=== PATIENT | female | born 1990 | race Caucasian/White ===

== ENCOUNTER 2017-01-03 00:04 | Inpatient (IN) | payer BC ==
[~2017-01-03] VITALS: Ht 167.6 cm; Wt 122.0 kg
--- NOTE | 2017-01-03 19:20 | NUR ---
01/03/171919 Jacinda Olvera 1908 - PT ARRIVED TO PACU AWAKE AND MAINTAINING AIRWAY. O2 SAT ABOVE 98% ON ROOM AIR. PT DENIES PAIN AND NAUSEA. AT BEDSIDE
[2017-01-04] MEDS ORDERED: HYDROCHLOROTHIA25 MG PO (02:51)
[2017-01-04] MEDS ORDERED: TYLENOL EXTRA500 MG PO (02:52)
--- NOTE | 2017-01-04 09:58 | PR ---
[facility] [address] [facility] [place], [place] [address] Signed PP Progress Notes Datetime Report Generated by NILSA: 01/04/2017 09:58 SUBJECTIVE: [id number] Pain: Within normal limits Nausea/Vomiting: Denies Flatus: No Vital Signs: [id number] Vital Signs: Reviewed; Within Normal Limits EXAM: [id number] Cardiovascular: Normal Respiratory: Normal Abdomen/Uterus: Abnormal Lochia: Normal Vulva/Perineum: Not Done Breasts: Not Done CVA Tenderness: Not Done Extremities: Abnormal Incision: Normal Progress: Abnormal Exam Comments: Abdomen with active BS. Fundus firm, NT @ U-1. Ext 2+ edema H/H 10.5/30.1, WBC 10.6, plat 94k IMPRESSION/PLAN/PROCEDURES: [id number] Impression: Normal progression; difficulties Plan: consult Other Plans: increase ambulation Progress Notes: Doing well overall. Platelets are lower but not dangerously so. Signing Physician: Dali Zavaleta MD CC: *Electronically Signed* 01/04/17 0958 DALI ZAVALETA MD PATIENT NAME: IGNACIAJUDY PROGRESS NOTE DATE OF : 89 PHYSICIAN: DALI ZAVALETA MD RPT #: [id number] REPORT IS CONFIDENTIAL AND NOT TO BE RELEASED WITHOUT AUTHORIZATION
--- NOTE | 2017-01-06 00:59 | EKG ---
[facility] [address] [facility] [place], [place] [address] Signed Normal sinus rhythm Normal ECG No previous ECGs available Confirmed by LAURA MONTES MD ([id number]) on 01/06/2017 12:59:16 AM Electronically Signed By: LAURA MONTES MD 01/06/17 0059 PATIENT NAME: JUDY BETH Electrocardiogram DATE OF : 89 PHYSICIAN: LAURA MONTES MD REPORT #: [id number] REPORT IS CONFIDENTIAL AND NOT TO BE RELEASED WITHOUT AUTHORIZATION
== END 2017-01-07 13:20 | disposition home or self-care (01) | DRG 766 ==
LOC: FBC 00:04
PROVIDERS: ADMIT Obstetrics & Gynecology
PROC: 10D00Z1 Extraction of Products of Conception, Low, Open Approach (ICD-10-PCS; principal; 2017-01-03 17:47)
DX: O11.4 Pre-existing hypertension with pre-eclampsia, complicating childbirth (principal); O69.81X0 Labor and delivery complicated by cord around neck, without compression, not applicable or unspecified; Z3A.38 38 weeks gestation of pregnancy; Z37.0 Single live birth
CPT/HCPCS: 01961; 36415; 82565; 84450; 84520; 84550; 85025; 85027; 93005; 93010; C1763; J0690; J1644; J1885; J2274; J2540; J2590

== ENCOUNTER 2020-06-08 11:20 | Observation (INO) | payer BC, OTHER ==
[~2020-06-08] VITALS: Ht 167.6 cm; Wt 124.7 kg
[~2020-06-08 11:20] MED LIST: HYDROCHLOROTHIA25 MG PO; TYLENOL EXTRA500 MG PO
--- NOTE | 2020-06-08 22:45 | NUR ---
2226 [facility] RAPID COVID TEST DONE PER ORDER. COVID TEST COLLECTED FROM LEFT NARE. RIGHT NARE HAD AN OBSTRUCTION WHEN TRIED. PT TOLERATED WELL.
== END 2020-06-09 09:10 | disposition home or self-care (01) ==
LOC: FBCO 11:20 → FBC 13:36
PROVIDERS: ADMIT Obstetrics & Gynecology; ATTEND Obstetrics & Gynecology
DX: O10.913 Unspecified pre-existing hypertension complicating pregnancy, third trimester (principal)
CPT/HCPCS: 36415; 82565; 82570; 84156; 84450; 84520; 84550; 85025; C9803; G0378; U0003

== ENCOUNTER 2020-06-24 13:38 | Inpatient (IN) | payer BC, OTHER ==
[~2020-06-24] VITALS: Ht 167.6 cm; Wt 122.5 kg
--- NOTE | 2020-06-26 08:33 | NUR ---
06/26/20 0808 Katherine Holder 0841 PT ARRIVED TO ROOM 104, AT BEDSIDE AND VSS. PT DENIES PAIN AND NAUSEA. PT WANTING TO SIT UP, EDUCATION GIVEN ABOUT SPINAL. 0828 PT HOLDING BABY, PT REPORT SMALL AMOUNT OF DIZZINESS BUT NO NAUSEA.
--- NOTE | 2020-06-26 10:14 | OR ---
[facility] [address] [place], [place] [address] Signed DATE OF OPERATION: 06/26/2020 SURGEON: Dali Zavaleta MD EXECUTIVE ACCOUNT MANAGER: Dr. Herrmann. PREOPERATIVE DIAGNOSES: 1. Term . 2. Previous section. 3. Chronic hypertension with superimposed preeclampsia. 4. Obesity. POSTOPERATIVE DIAGNOSES: 1. Term . 2. Previous section. 3. Chronic hypertension with superimposed preeclampsia. 4. Obesity. 5. Delivered. PROCEDURE: Repeat section with low segment transverse uterine incision. ANESTHESIA: Spinal. ESTIMATED BLOOD LOSS: 600 mL. DRAINS: Meléndez catheter. INDICATIONS AND FINDINGS: The patient is a 29-year-old female, 3, para 1, SAB 1, who was admitted at 37 weeks for repeat section. Her has been complicated by chronic hypertension with superimposed preeclampsia. At the time of surgery, she was delivered of a little girl via lower segment transverse uterine incision from the ROT position with Apgars of 9 and 9 and weight of 8 pounds 5 ounces. The uterus, tubes, ovaries, placenta were normal. Electronically Signed By: DALI ZAVALETA MD 06/26/20 1014 PATIENT NAME: JUDY BETH OPERATIVE REPORT DATE OF : 89 REPORT #: [id number] PHYSICIAN: DALI ZAVALETA MD PCP: ADY HOPKINS DO REPORT IS CONFIDENTIAL AND NOT TO BE RELEASED WITHOUT AUTHORIZATION [facility] [address] [place], [place] [address] Signed DESCRIPTION OF PROCEDURE: The patient was prepped and draped in the supine position. A repeat Pfannenstiel skin incision was made and carried down through the fascia. The fascial incision was extended laterally. The inferior and superior fascial flaps were then created. There was quite a bit of scarring especially superiorly. Vessel was lacerated in the left upper portion of the muscle and several [id number] sutures of 0 Vicryl were required to control this and allow for hemostasis. The muscles were sharply divided and the peritoneum was entered sharply and the incision extended superiorly and inferiorly. The Garcia retractor was then placed. There were no adhesions noted of the omentum. The uterine incision was made at the upper aspect of the peritoneal reflection and the incision extended bluntly. The baby was delivered with the above findings and handed off to the pediatric staff in attendance. The edges of the incision were identified and the uterus was closed in 2 layers using 0 Monocryl. The first layer was a running locking stitch and second was a vertical imbricating stitch. The abdomen was then copiously irrigated and inspected and good hemostasis was noted. The retractor was removed and the peritoneum identified. An ACell graft was laid over the lower segment to aid in healing. The peritoneum was then closed with a running suture of 3-0 Vicryl. Muscles were brought together in the midline with interrupted sutures of 0 Vicryl. Further bleeding was noted at the left upper fascial muscle's intersection and 2 additional [id number]-uzdunq were required in that area for control of bleeding. This layer was then irrigated and inspected and good hemostasis was noted. ACell powder was sprinkled over the muscles to aid in healing. The fascia was then closed with running suture of 0 Vicryl from each angle to the midline. The subcu tissue was irrigated and inspected and bleeding points controlled with cautery. The deep space was closed with a running suture of 3-0 Vicryl. The skin was closed with thony. All sponge and needle counts were correct. She tolerated procedure well and was taken to the recovery room in good condition. MD CARL Loredo/VANESSAL /[id number] cc: Dr. Herrmann Electronically Signed By: DALI ZAVALETA MD 06/26/20 1014 PATIENT NAME: JUDY BETH OPERATIVE REPORT DATE OF : 89 REPORT #: [id number] PHYSICIAN: DALI ZAVALETA MD PCP: ADY HOPKINS DO REPORT IS CONFIDENTIAL AND NOT TO BE RELEASED WITHOUT AUTHORIZATION [address] [place] [address] Signed Copies: ~ Electronically Signed By: DALI ZAVALETA MD 06/26/20 1014 PATIENT NAME: JUDY BETH OPERATIVE REPORT DATE OF : 89 REPORT #: [id number] PHYSICIAN: DALI ZAVALETA MD PCP: ADY HOPKINS DO REPORT IS CONFIDENTIAL AND NOT TO BE RELEASED WITHOUT AUTHORIZATION
--- NOTE | 2020-06-27 10:28 | PR ---
[facility] [address] [facility] [place], [place] [address] Signed PP Progress Notes Datetime Report Generated by CPN: 06/27/2020 10:28 SUBJECTIVE: [id number] Pain: Abnormal Pain Comments: Feels pain meds not working well. Nausea/Vomiting: Denies Flatus: No Vital Signs: [id number] Vital Signs: Reviewed Notable Details: intermittent severe HTN EXAM: Ongoing Cardiovascular: Normal Respiratory: Normal Abdomen/Uterus: Abnormal Lochia: Normal Vulva/Perineum: Not Done Breasts: Not Done CVA Tenderness: Not Done Extremities: Normal Incision: Normal Progress: Normal Exam Comments: Abdomen with active BS. Fundus firm, sl tender @ U-2. Incision clean and intact H/H 10.2/29.4, WBC 9, plat 110k IMPRESSION/PLAN/PROCEDURES: [id number] Impression: Pain; Induced Hypertension Other Impression: gas pain, thrombocytopenia Plan: Continue Present Management Progress Notes: Pain not well controlled currently. I suspect some is related to gas. Encouraged ambulation and heat. Platelets are low but have been most of and suspect gestational thrombocytopenia. Will recheck in am. Her BPs are better today but still with intermittent severe BPs. Will continue labetalol. Signing Physician: Dali Zavaleta MD Copies: *Electronically Signed* 06/27/20 1028 DALI ZAVALETA MD PATIENT NAME: JUDY BETH PROGRESS NOTE DATE OF : 89 PHYSICIAN: DALI ZAVALETA MD RPT #: [id number] REPORT IS CONFIDENTIAL AND NOT TO BE RELEASED WITHOUT AUTHORIZATION [address] [address] Signed ~ *Electronically Signed* 06/27/20 1028 DALI ZAVALETA MD PATIENT NAME: JUDY BETH PROGRESS NOTE DATE OF : [birth year] PHYSICIAN: DALI ZAVALETA MD RPT #: [id number] REPORT IS CONFIDENTIAL AND NOT TO BE RELEASED WITHOUT AUTHORIZATION
--- NOTE | 2020-06-28 08:43 | PR ---
[facility] [address] [place], [place] [address] Signed PP Progress Notes Datetime Report Generated by NILSA: 06/28/2020 08:43 SUBJECTIVE: [id number] Pain: Abnormal Pain Comments: Taking lg amounts of oxycodone Nausea/Vomiting: Denies Flatus: Yes Bowel Movement: Yes Vital Signs: [id number] Vital Signs: Reviewed Notable Details: occ severe HTN EXAM: Ongoing Cardiovascular: Normal Respiratory: Not Done Abdomen/Uterus: Abnormal Lochia: Not Done Vulva/Perineum: Not Done Breasts: Not Done CVA Tenderness: Not Done Extremities: Normal Incision: Abnormal Progress: Abnormal Exam Comments: Abdomen with active BS. Fundus firm, NT @ U-1. Incision with obvious bruising and swelling at left aspect. Minimal erythema superiorly. H/H 10.2/29.8, WBC 8.3, plat 120 S69, L23.8 IMPRESSION/PLAN/PROCEDURES: [id number] Impression: Pain; Induced Hypertension Other Impression: gas pain, thrombocytopenia Plan: Discharge Progress Notes: She is doing well overall though she is taking a lot of oxycodone to manage her pain. She does have a wound hematoma though I do not think she has a cellulitis at this time. She is very anxious to be discharged, however. I think she can be discharged with early f/u. Thrombocytopenia--improving HTN--improving with no severe BPs since yesterday am Signing Physician: Dali Zavaleta MD *Electronically Signed* 06/28/20 0843 DALI ZAVALETA MD PATIENT NAME: JUDY BETH PROGRESS NOTE DATE OF : 89 PHYSICIAN: DALI ZAVALETA MD RPT #: [id number] REPORT IS CONFIDENTIAL AND NOT TO BE RELEASED WITHOUT AUTHORIZATION [address] [place] [facility] [place], [place] [address] Signed Copies: ~ *Electronically Signed* 06/28/20 0843 DALI ZAVALETA MD PATIENT NAME: JUDY BETH PROGRESS NOTE DATE OF : 89 PHYSICIAN: DALI ZAVALETA MD RPT #: [id number] REPORT IS CONFIDENTIAL AND NOT TO BE RELEASED WITHOUT AUTHORIZATION
== END 2020-06-28 11:27 | disposition home or self-care (01) | DRG 787 ==
LOC: FBC 06-26 04:57
PROVIDERS: ADMIT Obstetrics & Gynecology; ATTEND Obstetrics & Gynecology
PROC: 10D00Z1 Extraction of Products of Conception, Low, Open Approach (ICD-10-PCS; principal; 2020-06-26 07:30)
DX: O34.211 Maternal care for low transverse scar from previous cesarean delivery (principal); O99.12 Other diseases of the blood and blood-forming organs and certain disorders involving the immune mechanism complicating childbirth; O10.02 Pre-existing essential hypertension complicating childbirth; N85.8 Other specified noninflammatory disorders of uterus; Z3A.37 37 weeks gestation of pregnancy; Z37.0 Single live birth; O99.214 Obesity complicating childbirth; E66.01 Morbid (severe) obesity due to excess calories; O32.2XX0 Maternal care for transverse and oblique lie, not applicable or unspecified; D69.6 Thrombocytopenia, unspecified; O90.2 Hematoma of obstetric wound; O11.4 Pre-existing hypertension with pre-eclampsia, complicating childbirth; O99.824 Streptococcus B carrier state complicating childbirth
CPT/HCPCS: 01961; 36415; 85025; 85027; 86850; 86870; 86900; 86901; A9270; J0690; J1644; J1885; J2001; J2274; J2405; J2590; J7121